=== PATIENT | male | born 1965 | race Caucasian/White ===

== ENCOUNTER 2017-03-01 15:18 | Emergency (ER) | payer MEDICAID ==
[~2017-03-01] VITALS: Ht 157.5 cm; Wt 75.5 kg
[~2017-03-01 15:18] MED LIST: AMLO-145 PO; ATOR20TA38 PO; DOCU-144 PO; HYD25 PO; HYDR-3498 PO; MAGN296S40 PO; MECL12.574 PO; NAPR-688 PO; PANT40TA4 PO; POLY17PO6 PO
[2017-03-01 15:19] VITALS: Ht 157.5 cm; Wt 75.5 kg
[2017-03-01] MEDS ORDERED: ONDANSETRON 4 MG INJ IV STA (15:58)
[2017-03-01] MEDS ORDERED: morphine 4 MG/ML VIAL IV STA (15:58)
[2017-03-01] MEDS ORDERED: SOD CHLORIDE 0.9% 1,000 ML IV STA (15:58)
[2017-03-01 16:13] LABS: ADD SCAN DIFF NO
[2017-03-01 16:14] LABS: BASOPHILS % 0.3 % (0.0-2.0); EOSINOPHILS # 0.2 10^3/ul (0.0-0.5); EOSINOPHILS % 1.8 % (0.0-7.0); HEMATOCRIT 45.2 % (42.0-52.0); HEMOGLOBIN 15.7 g/dl (14.0-18.0); LYMPHOCYTES # 0.9 10^3/ul (0.8-2.9); LYMPHOCYTES % 8.1 % (15.0-51.0); MEAN CORPUSCULAR HEMOGLOBIN 29.3 pg (29.0-33.0); MEAN CORPUSCULAR HGB CONC 34.7 g/dl (32.0-37.0); MEAN CORPUSCULAR VOLUME 84.3 fl (82.0-101.0); MEAN PLATELET VOLUME 11.3 fl (7.4-10.4); MONOCYTE # 0.7 10^3/ul (0.3-0.9); MONOCYTES % 6.9 % (0.0-11.0); NEUTROPHIL # 8.8 10^3/ul (1.6-7.5); NEUTROPHILS % 82.6 % (39.0-77.0); PLATELET COUNT 182 10^3/UL (140-415); RED BLOOD COUNT 5.36 10^6/ul (4.70-6.10); RED CELL DISTRIBUTION WIDTH 12.6 % (11.5-14.5); WHITE BLOOD COUNT 10.7 10^3/ul (4.8-10.8)
[2017-03-01 16:31] LABS: ALBUMIN 4.6 g/dl (3.3-4.9)
[2017-03-01 16:32] LABS: POTASSIUM 3.7 mmol/L (3.5-5.1)
[2017-03-01 16:34] LABS: ALBUMIN/GLOBULIN RATIO 1.17; BILIRUBIN,INDIRECT 0.5 mg/dl (0-1.1); BILIRUBIN,TOTAL 0.5 mg/dl (0.2-1.3); CALCIUM 8.9 mg/dl (8.4-10.2); CREATININE 0.95 mg/dl (0.61-1.24); TOTAL PROTEIN 8.5 g/dl (6.1-8.1)
--- NOTE | 2017-03-01 16:47 | RADRPT ---
PROCEDURE: CT abdomen and pelvis without IV contrast. CLINICAL INDICATION: Abdominal pain TECHNIQUE: CT scan of the abdomen and pelvis without contrast was performed on the [employer] volumetric [address] scanner. The patient was scanned without intravenous contrast. Coronal and sagittal refo rmatted images were obtained from the axial source images. The CTDI vol is 13.87 mGy and the DLP is 782.96 mGy-cm. COMPARISON: 02/14/2016 FINDINGS: CT abdomen: The lung bases are clear. The heart size is not enlarged and is without pericardial thickening or e ffusion. The liver is normal in size and is without focal mass or intrahepatic biliary dilatation. A probable small cysts in the dome of the liver is once again seen. Mild fatty infiltration of the liver is s een. The spleen is normal in size and homogeneous in density. The stomach is distended and filled w ith debris. The pancreas as visualized is normal. The gallbladder has been removed. No common bile duct dilatation is seen. The adrenal glands are symmetric and normal. The kidneys are symmetricall y unremarkable as well. No renal calculus or obstructive uropathy or mass lesion is seen. The aorta is of normal in caliber. There is no retroperitoneal lymphadenopathy. The yovana hepatis region is clear. The small and large bowel and mesentery, as visualized, are unremarkable. The norm al appendix is identified. CT pelvis: The prostate is again noted to be enlarged. The pelvic sidewalls and inguinal regions are clear. N o pelvic mass, lymphadenopathy, or free fluid is seen. No acute inflammation is seen. The urinary bladder is within normal limits. Degenerative spondylosis of the lumbar spine is seen. No osteolytic or osteoblastic lesion is detec martha. A small fat containing left inguinal hernia is once again seen and appears stable. IMPRESSION: 1. No acute pathology in the abdomen and pelvis. 2. Mild fatty infiltration of the liver. 3. Enlarged prostate again seen. When PSA correlation. RPTAT: HPNM Physician Summer Date Time Electronically viewed and signed by Physician Summer on 03/01/2017 16:47 /
[2017-03-01] MEDS ORDERED: HYDR-902 PO (17:42)
[2017-03-01] MEDS ORDERED: ONDA4TAB14 PO (17:42)
[2017-03-01 17:53] LABS: ADD UMIC YES; URINE BILIRUBIN (Dip) NEGATIVE (NEGATIVE); URINE BLOOD (Dip) NEGATIVE (NEGATIVE); URINE COLOR LT. YELLOW (YELLOW); URINE GLUCOSE (Dip) NEGATIVE (NEGATIVE); URINE KETONES (Dip) NEGATIVE (NEGATIVE); URINE LEUKOCYTE ESTERASE (Dip) NEGATIVE (NEGATIVE); URINE NITRITE (Dip) NEGATIVE (NEGATIVE); URINE TOTAL PROTEIN (Dip) TRACE (NEGATIVE); URINE UROBILINOGEN (Dip) 0.2 E.U./dL (0.1-1.0)
[2017-03-01 18:06] LABS: BACTERIA,URINE FEW; SQUAMOUS EPITHELIAL CELL,UR RARE; URINE RBCS 0-2 /HPF (0)
[2017-03-01] MEDS ORDERED: KETOROLAC 30 MG INJ IV STA (18:10)
--- NOTE | 2017-03-01 18:29 | ERD ---
ER Documentation Chief Complaint Date/Time DATE: 03/01/17 TIME: 18:27 Chief Complaint ABDOMINAL PAIN TODAY HPI Patient is a 52-year-old male with hypertension presents with abdominal pain. The abdominal pain radiates to the patient's back. It started this morning. It is constant pain. The patient had nausea but no vomiting or diarrhea. There are no fevers. There is been no treatment as of yet. Upon review of old medical records this is the patient's 12th visit to the ER since 2013. ROS All systems reviewed and are negative except as per history of present illness. Medications Home Meds Active Scripts Ondansetron (Ondansetron Odt) 4 Mg Tab.rapdis, 4 MG PO Q6H Y for NAUSEA AND/OR VOMITING, #10 TAB Prov:VENESSA JULES MD 03/01/17 Hydrocodone/Acetaminophen ([place] 10-325 Tablet) 1 Each Tablet, 1 TAB PO Q6H Y for PAIN, #7 TAB Prov:VENESSA JULES MD 03/01/17 Discontinued Reported Medications Pantoprazole (Protonix) 40 Mg Tabec, 40 MG PO DAILY, TAB 01/11/16 Hydrochlorothiazide* (Hydrochlorothiazide*) 25 Mg Tab, 25 MG PO DAILY, #30 TAB 01/11/16 Atorvastatin Calcium* (Atorvastatin Calcium*) 20 Mg Tablet, 20 MG PO QHS, #30 TAB 01/11/16 Amlodipine Besylate* (Amlodipine Besylate*) 5 Mg Tablet, 5 MG PO BID, #30 TAB 01/11/16 Discontinued Scripts Meclizine Hcl* (Antivert*) 12.5 Mg Tab, 12.5 MG PO Q6H Y for DIZZINESS, #20 TAB Prov:NISREEN RIOS 08/16/16 Magnesium Citrate* (Magnesium Citrate*) 296 Ml Solution, 296 ML PO ONCE, #1 BOTTLE Prov:AYDIN ALBERT DO 02/14/16 Polyethylene Glycol* (Miralax*) 17 Gm Powd.pack, 17 GM PO DAILY, #7 Prov:AYDIN ALBERT DO 02/14/16 Naproxen* (Naproxen*) 500 Mg Tablet, 500 MG PO BID Y for PAIN, #14 TAB Prov:AYDIN ALBERT DO 02/14/16 Hydrocodone Bit-Acetaminophen* ([place]*) 5-325 Mg Tab, 1 TAB PO Q6 Y for PAIN, # 14 TAB Prov:AYDIN ALBERT DO 02/14/16 Docusate Sodium* (Colace*) 100 Mg Capsule, 100 MG PO DAILY, #30 CAP Prov:MINO JOHNSON 01/22/16 Hydrocodone Bit-Acetaminophen* ([place]*) 5-325 Mg Tab, 1 TAB PO Q6 Y for PAIN, # 20 TAB Prov:STELLA JOHNSONA 01/22/16 Allergies Allergies: Coded Allergies: No Known Allergy (Unverified , 03/01/17) PMhx/Soc History of Surgery: Yes (KIDNEY STONE REMOVAL; gallbladder) Anesthesia Reaction: No Hx Neurological Disorder: No Hx Respiratory Disorders: No Hx Cardiac Disorders: Yes (cholesterol) Hx Psychiatric Problems: No Hx Miscellaneous Medical Probl: Yes (HTN, DM) Hx Alcohol Use: No Hx Substance Use: No Hx Tobacco Use: No FmHx Family History: No diabetes Physical Exam Vitals Vital Signs Date Time Temp Pulse Resp B/P Pulse Ox O2 Delivery O2 Flow Rate FiO2 03/01/17 15:19 98.7 87 18 178/95 96 Physical Exam Const: Mild distress secondary to pain Head: Atraumatic Eyes: Normal Conjunctiva ENT: Normal External Ears, Nose and Mouth. Neck: Full range of motion..~ No meningismus. Resp: Clear to auscultation bilaterally Cardio: Regular rate and rhythm, no murmurs Abd: Soft, periumbilical tenderness to palpation without rebound or guarding Skin: No petechiae or rashes Back: No midline or flank tenderness Ext: No cyanosis, or edema Neur: Awake and alert Psych: Normal Mood and Affect Result Diagram: 03/01/17 1600 03/01/17 1600 Results 24 hrs Laboratory Tests Test 03/01/17 16:00 03/01/17 17:43 White Blood Count 10.710^3/ul Red Blood Count 5.3610^6/ul Hemoglobin 15.7g/dl Hematocrit 45.2% Mean Corpuscular Volume 84.3fl Mean Corpuscular Hemoglobin 29.3pg Mean Corpuscular Hemoglobin Concent 34.7g/dl Red Cell Distribution Width 12.6% Platelet Count 87758^3/UL Mean Platelet Volume 11.3fl Neutrophils % 82.6% Lymphocytes % 8.1% Monocytes % 6.9% Eosinophils % 1.8% Basophils % 0.3% Nucleated Red Blood Cells % 0.0/100WBC Neutrophils # 8.810^3/ul Lymphocytes # 0.910^3/ul Monocytes # 0.710^3/ul Eosinophils # 0.210^3/ul Basophils # 0.010^3/ul Nucleated Red Blood Cells # 0.010^3/ul Sodium Level 141mmol/L Potassium Level 3.7mmol/L Chloride Level 103mmol/L Carbon Dioxide Level 24mmol/L Anion Gap 18 Blood Urea Nitrogen 21mg/dl Creatinine 0.95mg/dl Glucose Level 130mg/dl Calcium Level 8.9mg/dl Total Bilirubin 0.5mg/dl Direct Bilirubin 0.00mg/dl Indirect Bilirubin 0.5mg/dl Aspartate Amino Transf (AST/SGOT) 49IU/L Alanine Aminotransferase (ALT/SGPT) 57IU/L Alkaline Phosphatase 84IU/L Total Protein 8.5g/dl Albumin 4.6g/dl Globulin 3.90g/dl Albumin/Globulin Ratio 1.17 Lipase 391U/L Urine Color LT. YELLOW Urine Clarity CLEAR Urine pH 6.0 Urine Specific [place] 1.025 Urine Ketones NEGATIVE Urine Nitrite NEGATIVE Urine Bilirubin NEGATIVE Urine Urobilinogen 0.2 E.U./dL Urine Leukocyte Esterase NEGATIVE Urine Microscopic RBC 0-2/HPF Urine Microscopic WBC 0-2/HPF Urine Squamous Epithelial Cells RARE Urine Bacteria FEW Urine Hemoglobin NEGATIVE Urine Glucose NEGATIVE% Urine Total Protein TRACE Current Medications Medications (Trade) Dose Ordered Sig/Jud Route PRN Reason Start Time Stop Time Status Last Admin Dose Admin Sodium Chloride (NS) 1,000 ml @ 1,000 mls/hr Q1H STAT IV 03/01/17 15:58 03/01/17 16:57 DC 03/01/17 16:16 Morphine Sulfate (morphine) 4 mg ONCE STAT IV 03/01/17 15:58 03/01/17 15:59 DC 03/01/17 16:16 Ondansetron HCl (Zofran Inj) 4 mg ONCE STAT IV 03/01/17 15:58 03/01/17 15:59 DC 03/01/17 16:15 Ketorolac Tromethamine (Toradol) 30 mg ONCE STAT IV 03/01/17 18:10 03/01/17 18:11 DC 03/01/17 18:26 Procedures/MDM CT scan shows no acute process per radiology. Patient is a 52-year-old male with hypertension who presents with abdominal pain. The patient has a negative workup including laboratory studies and CT scan of the abdomen and pelvis. At this point I doubt cholecystitis, pancreatitis, appendicitis, or bowel obstruction. His lipase is not 3 times normal although it is slightly elevated. And therefore I doubt pancreatitis. The patient will be discharged with a short course of [place] and Zofran. He should follow-up with his primary doctor within 24 hours for reevaluation. He can return for any worsening symptoms. Departure Diagnosis: Primary Impression: Abdominal pain Abdominal location: generalized Qualified Code: R10.84 - Generalized abdominal pain Condition: Fair Patient Instructions: Abdominal Pain Referrals: Your doctor Additional Instructions: Visite a cristy hylton para un EXAMEN.Regrese a estas instalaciones si no se mejora el esperbamos o el le sonal. VENESSA JULES MD March 01, 2017 18:29
[2017-03-01 18:43] VITALS: BP 165/90; PULSE 85; RESP 18; TEMP 98.7
== END 2017-03-01 18:43 | disposition home or self-care (01) ==
LOC: E/R 15:18
DX: R10.84 Generalized abdominal pain (principal); I10 Essential (primary) hypertension; E11.9 Type 2 diabetes mellitus without complications; R11.0 Nausea
CPT/HCPCS: 36415; 74176; 80053; 81001; 83690; 85025; 96374; 96375; J1885; J2270; J2405; J7030; Z7502; 81003

== ENCOUNTER 2017-03-22 15:53 | Emergency (ER) | payer MEDICAID ==
[~2017-03-22] VITALS: Wt 75.0 kg
[~2017-03-22 15:53] MED LIST changes: -AMLO-145 PO; -ATOR20TA38 PO; -DOCU-144 PO; -HYD25 PO; -HYDR-3498 PO; +HYDR-902 PO; -MAGN296S40 PO; -MECL12.574 PO; -NAPR-688 PO; +ONDA4TAB14 PO; -PANT40TA4 PO; -POLY17PO6 PO
[2017-03-22] MEDS ORDERED: IBUPROFEN 600 MG TAB PO ONE (17:00)
--- NOTE | 2017-03-22 17:26 | RADRPT ---
PROCEDURE: XR left knee. CLINICAL INDICATION: Knee pain TECHNIQUE: 3 views are available for review. COMPARISON: None available FINDINGS: There is calcific enthesopathy involving the anterior superior aspect of the patella. There is mild osteoarthrosis involving the patellofemoral compartment. This is associated with mild osteophytosis. The osseous structures are otherwise normal in mineralization, architecture and alignment. No fract ures are identified. No osseous lesions are identified. The soft tissues are unremarkable. IMPRESSION: Calcific enthesopathy involving the anterior superior aspect of the patella. Mild osteoarthrosis involving the patellofemoral compartment. RPTAT: HGDB .Jefferson Rhodes MD, MD Date Time Electronically viewed and signed by .Jefferson Rhodes MD, on 03/22/2017 17:25 .B/
[2017-03-22] MEDS ORDERED: IBUP-1542 PO (17:58)
[2017-03-22] MEDS ORDERED: TRAM50TA2 PO (17:58)
--- NOTE | 2017-03-22 18:01 | ERD ---
ER Documentation Chief Complaint Date/Time DATE: 03/22/17 TIME: 17:59 Chief Complaint LEFT KNEE PAIN WHILE GOING [employer]IRS HPI This 52-year-old male complains of left knee pain after an awkward movement going down the stairs and twisting his left knee in the last day. Denies fevers , redness, restricted range of motion or weakness. ROS All systems reviewed and are negative except as per history of present illness. Medications Home Meds Active Scripts Tramadol HCl (Tramadol HCl) 50 Mg Tablet, 50 MG PO Q4 Y for PAIN, #15 TAB Prov:IVON MORAN MD 03/22/17 Ibuprofen* (Motrin*) 600 Mg Tab, 600 MG PO Q6, #20 TAB Prov:IVON MORAN MD 03/22/17 Ondansetron (Ondansetron Odt) 4 Mg Tab.rapdis, 4 MG PO Q6H Y for NAUSEA AND/OR VOMITING, #10 TAB Prov:VENESSA JULES MD 03/01/17 Hydrocodone/Acetaminophen ([place] 10-325 Tablet) 1 Each Tablet, 1 TAB PO Q6H Y for PAIN, #7 TAB Prov:VENESSA JULES MD 03/01/17 Allergies Allergies: Coded Allergies: No Known Allergy (Unverified , 03/01/17) PMhx/Soc History of Surgery: Yes (KIDNEY STONE REMOVAL; gallbladder) Anesthesia Reaction: No Hx Neurological Disorder: No Hx Respiratory Disorders: No Hx Cardiac Disorders: Yes (cholesterol, HTN) Hx Psychiatric Problems: No Hx Miscellaneous Medical Probl: Yes (DM) Hx Alcohol Use: No Hx Substance Use: No Hx Tobacco Use: No Smoking Status: Never smoker Physical Exam Vitals Vital Signs Date Time Temp Pulse Resp B/P Pulse Ox O2 Delivery O2 Flow Rate FiO2 03/22/17 15:58 98.0 74 18 167/78 98 Physical Exam Const: [] Alert, [id number]. Head: Atraumatic Eyes: Normal Conjunctiva ENT: Normal External Ears, Nose and Mouth. Neck: Full range of motion..~ No meningismus. Resp: Clear to auscultation bilaterally Cardio: Regular rate and rhythm, no murmurs Abd: Soft, non tender, non distended. Normal bowel sounds Skin: No petechiae or rashes Back: No midline or flank tenderness Ext: No cyanosis, or edema. Tenderness primarily in the medial distal femur and medial joint line. No effusion, deformities, erythema. There is no calf swelling or Homans sign. Neur: Awake and alert Psych: Normal Mood and Affect Results 24 hrs Current Medications Medications (Trade) Dose Ordered Sig/Jud Route PRN Reason Start Time Stop Time Status Last Admin Dose Admin Ibuprofen (Motrin) 600 mg ONCE ONCE PO 03/22/17 17:00 03/22/17 17:01 DC 03/22/17 17:22 Procedures/MDM X-ray left knee 3V Interpreted by me: Bones: [No fracture] Joints: [No dislocation] Foreign body: [None]. Impression-degenerative changes of the left knee Patient was given ibuprofen for pain Patient presents with medial knee pain after an awkward movement going downstairs. He may have a cartilage injury. X-ray shows degenerative changes which may be a contributing factor. Patient was placed in left knee immobilizer was neurovascular intact after knee immobilizer. He was given crutches with crutch training as well . Patient will be discharged home with PCP and orthopedic follow-up. He was given a short course of tramadol and ibuprofen for pain. Patient should return for fevers, redness, new worsening symptoms. Signs and symptoms do not suggest septic arthritis, ischemia, DVT, additional emergent knee conditions Departure Diagnosis: Primary Impression: Knee injury Encounter type: initial encounter Laterality: left Qualified Code: S89.92XA - Knee injury, left, initial encounter Condition: Stable Patient Instructions: Knee Sprain, Osteoarthritis Referrals: ERICA IVEY MD Additional Instructions: X RAY JLUIS ARTRITIS. Cheque otro vez con [place] doctor primario en el proximo [place] or regresa para mas o nueva simptomas. Va al [facility] doctor/ specialista para mas evaluacon en el proximo semana. posiblemente necesita autorizado de [place] doctor primario para specialista. Regresa para fiebre, o mas o nueva simptomas. IVON MORAN MD Mar 22, 2017 18:01
[2017-03-22 18:17] VITALS: BP 126/77; PULSE 75; RESP 19; TEMP 98.5
== END 2017-03-22 18:20 | disposition home or self-care (01) ==
LOC: FTE 15:53
DX: S89.92XA Unspecified injury of left lower leg, initial encounter (principal); E11.9 Type 2 diabetes mellitus without complications; I10 Essential (primary) hypertension; X50.1XXA Overexertion from prolonged static or awkward postures, initial encounter; Y92.9 Unspecified place or not applicable
CPT/HCPCS: 29505; 73562; Z7502; Z7610

== ENCOUNTER 2017-10-20 06:43 | Emergency (ER) | END 2017-10-20 10:59 | disposition home or self-care (01) ==

== ENCOUNTER 2018-01-01 07:22 | Emergency (ER) | END 2018-01-01 13:14 | disposition home or self-care (01) ==

== ENCOUNTER 2018-08-07 14:03 | Emergency (ER) | END 2018-08-07 16:50 | disposition home or self-care (01) ==

== ENCOUNTER 2019-01-09 05:22 | Emergency (ER) | payer MEDICAID ==
[~2019-01-09] VITALS: Ht 149.9 cm; Wt 75.0 kg
[~2019-01-09 05:22] MED LIST changes: +ACET500T98 PO; +DICY10CA40 PO; +HYDR-3980 PO; -HYDR-902 PO; +IBUP-1542 PO; +RANI150T35 PO; +TRAM50TA2 PO
[2019-01-09 05:26] VITALS: Ht 149.9 cm; Wt 75.0 kg
[2019-01-09] MEDS ORDERED: LISI10TA2 PO (06:09)
[2019-01-09] MEDS ORDERED: LIDOCAINE/MYLANTA 40 ML BTL PO STA (06:21)
[2019-01-09] MEDS ORDERED: FAMOTIDINE 20 MG INJ IV STA (06:21)
[2019-01-09] MEDS ORDERED: BELLADONNA/PHENOBARBITAL TAB PO STA (06:21)
[2019-01-09] MEDS ORDERED: ONDANSETRON 4 MG INJ IV STA (09:31)
[2019-01-09] MEDS ORDERED: HYDROmorphONE 1 MG/ML SYG IV STA (09:31)
--- NOTE | 2019-01-09 11:00 | ERD ---
ER Documentation Chief Complaint Chief Complaint C/O EPIGASTRIC PAIN HPI This is a 53-year-old male complaining of epigastric pain for 2 days. He said that he has had gastritis in the past and this feels similar. He has no chest pain shortness of breath no jaw pain no radiation of the arms no pain in the back. He says sometimes food makes the pain worse sometimes does not. He has a history of cholecystectomy and this is not the same type of pain. Pain is described as a sharp pain, nonradiating ROS All systems reviewed and are negative except as per history of present illness. Medications Home Meds Reported Medications Lisinopril* (Lisinopril*) 10 Mg Tablet, 10 MG PO DAILY, #30 TAB 01/09/19 Discontinued Scripts Acetaminophen (Tylenol) 500 Mg Tab, 500 MG PO Q6H PRN for PAIN, #30 TAB Prov:AUDREY PAVON DO 08/07/18 Tramadol HCl (Tramadol HCl) 50 Mg Tablet, 50 MG PO Q8H PRN for PAIN, #15 TAB Prov:AUDREY PAVON DO 08/07/18 Ondansetron (Ondansetron Odt) 4 Mg Tab.rapdis, 4 MG PO Q6H PRN for NAUSEA AND/OR VOMITING, #10 TAB Prov:VENESSA JULES MD 01/01/18 Hydrocodone/Acetaminophen ([place] 10-325 Tablet) 1 Each Tablet, 1 TAB PO Q6H PRN for PAIN, #7 TAB Prov:VENESSA JULES MD 01/01/18 Ranitidine Hcl* (Zantac*) 150 Mg Tablet, 150 MG PO BID PRN for EPIGASTRIC PAIN, #30 TAB Prov:ROBERTA TRAN 10/20/17 Dicyclomine HCl (Dicyclomine HCl) 10 Mg Capsule, 10 MG PO QID, #10 CAP Prov:ROBERTA TRAN 10/20/17 Tramadol HCl (Tramadol HCl) 50 Mg Tablet, 50 MG PO Q4 PRN for PAIN, #15 TAB Prov:IVON MORAN MD 03/22/17 Ibuprofen* (Motrin*) 600 Mg Tab, 600 MG PO Q6, #20 TAB Prov:IVON MORAN MD 03/22/17 Ondansetron (Ondansetron Odt) 4 Mg Tab.rapdis, 4 MG PO Q6H PRN for NAUSEA AND/OR VOMITING, #10 TAB Prov:VENESSA JULES MD 03/01/17 Hydrocodone/Acetaminophen ([place] 10-325 Tablet) 1 Each Tablet, 1 TAB PO Q6H PRN for PAIN, #7 TAB Prov:VENESSA JULES MD 03/01/17 Allergies Allergies: Coded Allergies: piperacillin (Unverified Allergy, Intermediate, rash, 01/09/19) tazobactam (Unverified Allergy, Intermediate, rash, 01/09/19) PMhx/Soc History of Surgery: Yes (KIDNEY STONE REMOVAL; gallbladder) Anesthesia Reaction: No Hx Neurological Disorder: No Hx Respiratory Disorders: No Hx Cardiac Disorders: Yes (cholesterol, HTN) Hx Psychiatric Problems: No Hx Miscellaneous Medical Probl: Yes (DM ) Hx Alcohol Use: No Hx Substance Use: No Hx Tobacco Use: No Smoking Status: Never smoker FmHx Family History: No coronary disease Physical Exam Vitals Vital Signs Date Temp Pulse Resp B/P (MAP) Pulse Ox O2 O2 Flow FiO2 Time Delivery Rate 01/09/19 60 18 142/95 98 Room Air 08:38 (111) 01/09/19 98.0 67 18 168/107 98 05:26 (127) Physical Exam Const: Well-developed, well-nourished Head: Atraumatic, normocephalic Eyes: Normal Conjunctiva, PERRLA, EOMI, normal sclera, no nystagmus ENT: Normal External Ears, Nose and Mouth, moist mucus membranes. Neck: Full range of motion. No meningismus, no lymphadenopathy. Resp: Clear to auscultation bilaterally, no wheezing, rhonchi, rales Cardio: Regular rate and rhythm, no murmurs, S1 S2 present Abd: Soft, mild to moderate epigastric tenderness, non distended. Normal bowel sounds, no guarding or rebound, no pulsitile abdominal masses or bruits Skin: No petechiae or rashes, no ecchymosis , no maculopapular rash Back: No midline or flank tenderness Ext: No cyanosis, or edema, FROM x 4, normal inspection, neurovascularly intact x 4 Neur: Awake and alert, STR 5/5 x 4, sensation intact x 4, no focal findings, cerebellum intact Psych: Normal Mood and Affect Result Diagram: 01/09/19 0610 01/09/19 0610 Results 24 hrs Laboratory Tests Test 01/09/19 06:10 White Blood Count 6.0 10^3/ul Red Blood Count 5.14 10^6/ul Hemoglobin 15.1 g/dl Hematocrit 44.7 % Mean Corpuscular Volume 87.0 fl Mean Corpuscular Hemoglobin 29.4 pg Mean Corpuscular Hemoglobin Concent 33.8 g/dl Red Cell Distribution Width 12.0 % Platelet Count 167 10^3/UL Mean Platelet Volume 11.6 fl Immature Granulocytes % 0.200 % Neutrophils % 53.5 % Lymphocytes % 30.7 % Monocytes % 8.6 % Eosinophils % 6.3 % Basophils % 0.7 % Nucleated Red Blood Cells % 0.0 /100WBC Immature Granulocytes # 0.010 10^3/ul Neutrophils # 3.2 10^3/ul Lymphocytes # 1.9 10^3/ul Monocytes # 0.5 10^3/ul Eosinophils # 0.4 10^3/ul Basophils # 0.0 10^3/ul Nucleated Red Blood Cells # 0.0 10^3/ul Urine Color YELLOW Urine Clarity CLEAR Urine pH 6.0 Urine Specific [place] 1.012 Urine Ketones NEGATIVE mg/dL Urine Nitrite NEGATIVE mg/dL Urine Bilirubin NEGATIVE mg/dL Urine Urobilinogen NEGATIVE mg/dL Urine Leukocyte Esterase NEGATIVE Deepa/ul Urine Hemoglobin NEGATIVE mg/dL Urine Glucose NEGATIVE mg/dL Urine Total Protein NEGATIVE mg/dl Sodium Level 143 mmol/L Potassium Level 4.0 mmol/L Chloride Level 107 mmol/L Carbon Dioxide Level 28 mmol/L Anion Gap 8 Blood Urea Nitrogen 11 mg/dl Creatinine 0.85 mg/dl Est Glomerular Filtrat Rate mL/min > 60 mL/min Glucose Level 111 mg/dl Calcium Level 9.1 mg/dl Total Bilirubin 0.4 mg/dl Direct Bilirubin 0.00 mg/dl Indirect Bilirubin 0.4 mg/dl Aspartate Amino Transf (AST/SGOT) 37 IU/L Alanine Aminotransferase (ALT/SGPT) 38 IU/L Alkaline Phosphatase 88 IU/L Troponin I < 0.012 ng/ml Total Protein 7.8 g/dl Albumin 4.3 g/dl Globulin 3.50 g/dl Albumin/Globulin Ratio 1.22 Lipase 170 U/L Current Medications Medications Dose Sig/Jud Start Time Status Last (Trade) Ordered Route PRN Stop Time Admin Dose Reason Admin Famotidine 20 mg ONCE STAT 01/09/19 DC 01/09/19 (Pepcid Iv) IV 06:21 06:33 01/09/19 06:24 40 ml ONCE STAT 01/09/19 DC 01/09/19 Miscellaneous PO 06:21 06:33 Medication 01/09/19 06:24 (Gi Cocktail (2)) Belladonna/ 2 tab ONCE STAT 01/09/19 DC 01/09/19 Phenobarbital PO 06:21 06:33 () 01/09/19 06:24 1 mg ONCE STAT 01/09/19 DC 01/09/19 Hydromorphone IV 09:31 09:39 HCl 01/09/19 09:32 (Dilaudid) Ondansetron 4 mg ONCE STAT 01/09/19 DC 01/09/19 HCl (Zofran IV 09:31 09:39 Inj) 01/09/19 09:32 Procedures/MDM Patient's labs are unremarkable. The patient received a GI cocktail which helped some the knee received some pain medication here and now his pain is 0. He says this is not like gallstone pain I do not think it some type of biliary colic. Slightly more gastric in nature. No chest pain or shortness of breath troponin is negative. EKG: Rate/Rhythm: Normal Sinus Rhythm,NL intervals QRS, ST, QT: NORMAL ND, QRS, QT] Impression: NORMAL EKG Will discharge home with gastritis treatment given warning signs Patient feels much better at this time, and vital signs are normal, symptoms have improved. I did give strict instructions to return to the ED if symptoms continue or worsen, patient will otherwise follow-up with primary care physician. Patient understood instructions and agreed to plan. Disclaimer: Inadvertent spelling and grammatical errors are likely due to EHR/dictation software use and do not reflect on the overall quality of patient care. Also, please note that the electronic time recorded on this note does not necessarily reflect the actual time of the patient encounter. Departure Diagnosis: Primary Impression: Epigastric pain Condition: Stable PRAVIN MAYA DO Jan 09, 2019 10:59
[2019-01-09] MEDS ORDERED: OMEP40CA6 PO (11:06)
[2019-01-09] MEDS ORDERED: HYDR-4011 PO (11:06)
[2019-01-09 12:20] VITALS: BP 124/78; PULSE 74; RESP 18
== END 2019-01-09 12:21 | disposition home or self-care (01) ==
LOC: E/R 05:22
DX: R10.13 Epigastric pain (principal); E11.9 Type 2 diabetes mellitus without complications; I10 Essential (primary) hypertension
CPT/HCPCS: 36415; 80053; 81003; 83690; 84484; 85025; 93005; 96374; 96375; J1170; J2405; Z7502; Z7610